=== PATIENT | male | born 1995 | race Caucasian/White ===

== ENCOUNTER 2020-08-26 13:37 | Outpatient (CLI) | payer OTHER, SELFPAY ==
[2020-08-26 14:42] LABS: Free T4 Free Thyroxine 1.18 ng/dL (0.82-1.77); T3 Free 3.2 PG/ML (2.0-4.4)
== END 2020-08-26 13:38 | disposition home or self-care (01) ==
LOC: LAB 13:44
PROVIDERS: Visit Provider Orthopaedic Surgery
DX: E05.00 Thyrotoxicosis with diffuse goiter without thyrotoxic crisis or storm (principal)
CPT/HCPCS: 36415; 84439; 84481

== ENCOUNTER 2021-04-30 07:39 | Outpatient (CLI) | payer OTHER, SELFPAY ==
--- NOTE | 2021-04-30 07:51 | XR_ITS ---
WS: [id number] Thoracic spine, 3 views, 04/30/2021 Clinical Data: ARTHRITIS Comparison: None. Findings: No compression fractures are seen. The disc heights are normal. The paravertebral regions are normal. XR/XR thoracic spine 2V [id number] Impression: Negative thoracic spine.
--- NOTE | 2021-04-30 07:51 | USCV_ITS ---
dEgardo Del Angel Age: 25 Gender: M : 1995 Exam Date: 04/30/2021 08:10 Ordering Phys: Ottoniel Bingham Technologist: Radha Carvalho Exam Location: [facility] [place] Indication: ISCHEMIC HEART DZ BP: 123 / 79 HR: 67 Rhythm: Sinus Technical Quality: Adequate MEASUREMENTS (Male / Female) Normal Values 2D ECHO LV Diastolic Diameter PLAX 4.3 cm 4.2 - 5.9 / 3.9 - 5.3 cm LV Systolic Diameter PLAX 2.8 cm IVS Diastolic Thickness 1.1 cm 0.6 - 1.0 / 0.6 - 0.9 cm IVS Systolic Thickness 1.5 cm LVPW Diastolic Thickness 1.2 cm 0.6 - 1.0 / 0.6 - 0.9 cm LVPW Systolic Thickness 1.4 cm LVOT Diameter 2.0 cm LV Ejection Fraction 2D Teich 64.4 % LV Ejection Fraction MOD 2C 63.1 % LV Ejection Fraction 2C AL 62.0 % LA Diameter 2.8 cm LA Width 3.1 cm LA Height 3.8 cm RA Width 2.7 cm RA Height 4.1 cm Aorta at Sinotubular Diameter 2.3 cm M-MODE Aortic Annulus Diameter 2.6 cm LA Ao Ratio MM 1.1 MV E Point Septal Separation 0.6 cm DOPPLER AV Peak Velocity 114.0 cm/s LVOT Peak Velocity 96.0 cm/s AV Area Cont Eq vti 2.6 cm squared AV Area Cont Eq pk 2.7 cm squared MV Peak Velocity 92.0 cm/s MV Area PHT 3.7 cm squared Mitral E to A Ratio 1.2 MV E' Velocity 59.0 cm/s TR Peak Velocity 189.0 cm/s TR Peak Gradient 14.3 mmHg Right Atrial Pressure 3.0 mmHg Pulmonary Artery Systolic Pressu 17.3 mmHg PV Peak Velocity 101.0 cm/s RV Acceleration Time 0.1 s RV Ejection Time 0.3 s RV AcT/ET 0.4 FINDINGS Left Ventricle Normal left ventricular size. LV systolic function is normal with EF of 55-60%. No regional wall motion abnormalities. Right Ventricle The right ventricle is normal in size and function. Right Atrium The right atrium is normal in size. Left Atrium The left atrium is normal in size. Mitral Valve Structurally normal mitral valve without significant stenosis or prolapse. There is trace mitral regurgitation. Aortic Valve Structurally normal aortic valve without significant sclerosis or stenosis. There is no aortic regurgitation. Tricuspid Valve Structurally normal tricuspid valve without significant stenosis or regurgitation. Insufficient TR jet to calculate RVSP Pulmonic Valve Structurally normal pulmonic valve without significant stenosis. There is no pulmonic regurgitation. Pericardium Normal pericardium without effusion. Aorta Normal ascending aorta dimension. CONCLUSIONS LV systolic function is normal with EF of 55-60% Trace mitral regurgitation No comparison studies are available Noah Whitfield MD (Electronically Signed) Final Date: 30 April 2021 11:08 S
--- NOTE | 2021-04-30 07:51 | XR_ITS ---
WS: [id number] Lumbar spine, 3 views, 04/30/2021 Clinical Data: ARTHRITIS Comparison: None. Findings: No compression fractures or subluxation is seen. No disc space narrowing is seen. The transverse proc esses and SI joints are normal. XR/XR lumbar spine 2-3V* [id number] Impression: Negative lumbar spine.
== END 2021-04-30 07:40 | disposition home or self-care (01) ==
PROVIDERS: Visit Provider Orthopaedic Surgery
DX: I25.9 Chronic ischemic heart disease, unspecified (principal); M13.80 Other specified arthritis, unspecified site; I34.0 Nonrheumatic mitral (valve) insufficiency
CPT/HCPCS: 72070; 72100; 93306